=== PATIENT | male | born 1970 | race Two or more races ===

== ENCOUNTER → 2017-09-30 09:03 | Outpatient (CLI) | payer OTHER ==
[~2017-09-30 09:03] MED LIST: XANAX XR0.5 MG PO
== END | disposition home or self-care (01) ==
LOC: LAB 09:03
DX: N39.0 Urinary tract infection, site not specified (principal)

== ENCOUNTER 2020-11-06 11:00 | Outpatient (CLI) | payer OTHER | END 2020-11-06 11:05 | disposition home or self-care (01) | LOC: SONOGRAMA 11:00 | PROVIDERS: ATTEND Urology | DX: N28.89 Other specified disorders of kidney and ureter (principal); Z12.5 Encounter for screening for malignant neoplasm of prostate; N52.02 Corporo-venous occlusive erectile dysfunction; E78.49 Other hyperlipidemia ==

== ENCOUNTER 2021-03-17 14:12 | Outpatient (CLI) | payer OTHER | END 2021-03-17 14:35 | disposition home or self-care (01) | LOC: RAD 14:12 | DX: M54.59 Other low back pain (principal) ==

== ENCOUNTER 2021-04-02 11:58 | Outpatient (CLI) | payer OTHER | END 2021-04-02 12:48 | disposition home or self-care (01) | LOC: RAD 11:58 | DX: M54.59 Other low back pain (principal) ==

== ENCOUNTER 2022-10-28 11:24 | Outpatient (CLI) | payer OTHER | END 2022-10-28 11:37 | disposition home or self-care (01) | LOC: RAD 11:24 | DX: M25.511 Pain in right shoulder (principal); M25.512 Pain in left shoulder ==

== ENCOUNTER 2022-12-10 09:27 | Outpatient (CLI) | payer OTHER | END 2022-12-10 09:30 | disposition home or self-care (01) | LOC: SONOGRAMA 09:27 | PROVIDERS: ATTEND Pathology Anatomic Pathology & Clinical Pathology | DX: D34 Benign neoplasm of thyroid gland (principal); E04.9 Nontoxic goiter, unspecified ==

== ENCOUNTER 2022-12-29 10:25 | Outpatient (CLI) | payer OTHER | END 2022-12-29 10:34 | disposition home or self-care (01) | LOC: RAD 10:25 | PROVIDERS: ATTEND Orthopaedic Surgery | DX: M54.16 Radiculopathy, lumbar region (principal); M48.061 Spinal stenosis, lumbar region without neurogenic claudication ==

== ENCOUNTER 2023-05-27 09:42 | Outpatient (CLI) | payer OTHER | END 2023-05-27 09:55 | disposition home or self-care (01) | LOC: RAD 09:42 | PROVIDERS: ATTEND Orthopaedic Surgery | DX: M48.06 Spinal stenosis, lumbar region (principal); M54.16 Radiculopathy, lumbar region ==

== ENCOUNTER 2023-10-19 10:35 | Outpatient (CLI) | payer OTHER | END 2023-10-19 10:46 | disposition home or self-care (01) | LOC: RAD 10:35 | PROVIDERS: ATTEND Orthopaedic Surgery | DX: M48.06 Spinal stenosis, lumbar region (principal); M54.16 Radiculopathy, lumbar region ==

== ENCOUNTER 2024-10-23 10:41 | Outpatient (CLI) | payer OTHER | END 2024-10-23 10:49 | disposition home or self-care (01) | LOC: TOM 10:41 | PROVIDERS: ATTEND Orthopaedic Surgery | DX: M48.06 Spinal stenosis, lumbar region (principal); M54.16 Radiculopathy, lumbar region ==